=== PATIENT | male | born 1995 | race Caucasian/White ===

== ENCOUNTER 2022-05-24 23:42 | Emergency (ER) | payer OTHER ==
[2022-05-25] MEDS ORDERED: PANTOPRAZOLE 40 MG INJ ONE (00:34)
[2022-05-25] MEDS ORDERED: ONDANSETRON 4 MG/2 ML VIAL ONE (00:34)
[2022-05-25 01:18] LABS: Albumin 4.6 g/dL (3.4-5.0); Bilirubin Total 0.6 mg/dL (0.2-1.0); Potassium 4.3 mmol/L (3.5-5.1); Protein, Total 8.1 g/dL (6.4-8.2)
[2022-05-25 01:24] LABS: Absolute Lymphocytes (CBC) 1.9 K/uL (0.7-4.9); Hematocrit 42.3 % (39.6-49.0); Lymphocytes % 20.9 % (15.3-44.8); MCV 86.6 fL (80-100); MPV 7.6 fL (7.6-11.3); RBC Red Blood Cell Count 4.89 M/uL (4.33-5.43)
--- NOTE | 2022-05-25 01:36 | ER ---
Nurse's Notes [facility] Name: Malik Centeno Age: 26 yrs Sex: Male : 1995 Arrival Date: 05/24/2022 Time: 23:46 Bed 12 Private MD: Diagnosis: Vomiting;Hematemesis Presentation: 05/24 23:50 Chief complaint: Patient states: "I was about to get in the shower when I vomited and tw5 then I saw a little bit of blood. It wasn't very much but I have never vomiting up blood before. It was just a little spot but like I said that has never happened to me before.". Coronavirus screen: Vaccine status: Patient reports receiving the 1st dose of the Covid vaccine. [employer]. Ebola Screen: Patient negative for fever greater than or equal to 101.5 degrees Fahrenheit, and additional compatible Ebola Virus Disease symptoms Patient denies exposure to infectious person. Patient denies travel to an Ebola-affected area in the 21 days before illness onset. Initial Sepsis Screen: Does the patient meet any 2 criteria? Yes Does the patient have a suspected source of infection? No. Patient's initial sepsis screen is negative. Risk Assessment: Do you want to hurt yourself or someone else? Patient reports no desire to harm self or others. Onset of symptoms was May 24, 2022 at 23:15. 23:50 Method Of Arrival: Ambulatory tw5 23:50 Acuity: MARGARITA 4 tw5 Triage Assessment: 23:54 GI: Reports. tw5 23:54 General: Appears in no apparent distress. Behavior is calm, cooperative, appropriate tw5 for age. Pain: Denies pain. Historical: - Allergies: 23:53 No Known Allergies; tw5 - Home Meds: 23:53 None [Active]; tw5 - PMHx: 23:53 None; tw5 - PSHx: 23:53 None; tw5 - Immunization history:: Flu vaccine is not up to date. - Social history:: Smoking status: Patient denies any tobacco usage or history of. Smoking status: Patient reports use of chewing tobacco. - Family history:: not pertinent. Screenin:54 Abuse screen: Denies threats or abuse. Denies injuries from another. Nutritional tw5 screening: No deficits noted. Tuberculosis screening: No symptoms or risk factors identified. Fall Risk None identified. Assessment: 23:54 General: Appears in no apparent distress. Behavior is calm, cooperative, appropriate tw5 for age. Neuro: Level of Consciousness is awake, alert, obeys commands, Oriented to person, place, time, situation. Cardiovascular: No deficits noted. Respiratory: No deficits noted. GI: Abdomen is non-distended. Vital Signs: 23:50 BP 137 / 87; Pulse 84; Resp 18; Temp 98.7; Pulse Ox 88% on R/A; Weight 108.86 kg; tw5 Height 6 ft. 0 in. (182.88 cm); Pain 2/10; 23:50 Body Mass Index 32.55 (108.86 kg, 182.88 cm) tw5 ED Course: 23:46 Patient arrived in ED. ja2 23:53 Triage completed. tw5 23:54 Arm band placed on. tw5 23:54 Patient has correct armband on for positive identification. Door closed. tw5 05/25 00:08 Hugo Hernandez MD is Attending Physician. saturnino 00:40 Initial lab(s) drawn, by in, sent to lab. Inserted saline lock: 20 gauge in right bb antecubital area, using aseptic technique. Blood collected. 01:35 Rosalia Calles MD is Referral Physician. saturnino 01:49 No provider procedures requiring assistance completed. Patient did not have IV access tw5 during this emergency room visit. Administered Medications: 00:42 Drug: Zofran (Ondansetron) 4 mg Route: IVP; Site: right antecubital; bb 00:44 Drug: ProTONIX (pantoprazole) 40 mg Route: IVP; Site: right antecubital; bb 00:47 CANCELLED (Other Intervention Used): ProTONIX (pantoprazole) 40 mg PO once bb 00:47 CANCELLED (Other Intervention Used): Zofran (Ondansetron) 4 mg PO once bb Medication: 12 23:54 VIS not applicable for this client. tw5 Outcome: 05/25 01:35 Discharge ordered by . saturnino 01:49 Discharged to home ambulatory. tw5 01:49 Condition: good 01:49 Discharge instructions given to patient, Instructed on discharge instructions, follow up and referral plans. medication usage, Demonstrated understanding of instructions, follow-up care, medications. 01:49 Patient left the ED. tw5 Signatures: Hugo Hernandez MD MD cha Ballard, Brenda RN RN Court Hardy Tiffany tw5 Corrections: (The following items were deleted from the chart) 00:47 00:42 Zofran (Ondansetron) 4 mg PO leidy forbes
--- NOTE | 2022-05-25 01:37 | EDPHYS ---
Physician Documentation [facility] Name: Malik Centeno Age: 26 yrs Sex: Male : 1995 Arrival Date: 05/24/2022 Time: 23:46 Bed 12 Private MD: ED Physician Hugo Hernandez HPI: 05/25 00:23 This 26 yrs old Male presents to ER via Ambulatory with complaints of saturnino Vomiting. 00:23 The patient presents to the emergency department with nausea, vomiting, that is saturnino continuous. Onset: The symptoms/episode began/occurred just prior to arrival. Possible causes: unknown. The symptoms are aggravated by nothing. The symptoms are alleviated by nothing. Associated signs and symptoms: The patient has no apparent associated signs or symptoms. Severity of symptoms: At their worst the symptoms were mild in the emergency department the symptoms have improved mildly. The patient has not experienced similar symptoms in the past. Historical: - Allergies: 05/24 23:53 No Known Allergies; tw5 - Home Meds: 23:53 None [Active]; tw5 - PMHx: 23:53 None; tw5 - PSHx: 23:53 None; tw5 - Immunization history:: Flu vaccine is not up to date. - Social history:: Smoking status: Patient denies any tobacco usage or history of. Smoking status: Patient reports use of chewing tobacco. - Family history:: not pertinent. ROS: 05/25 00:23 Constitutional: Negative for fever, chills, and weight loss, Eyes: Negative for injury, saturnino pain, redness, and discharge, ENT: Negative for injury, pain, and discharge, Neck: Negative for injury, pain, and swelling, Cardiovascular: Negative for chest pain, palpitations, and edema, Respiratory: Negative for shortness of breath, cough, wheezing, and pleuritic chest pain, Back: Negative for injury and pain, : Negative for injury, bleeding, discharge, and swelling, MS/Extremity: Negative for injury and deformity, Skin: Negative for injury, rash, and discoloration, Neuro: Negative for headache, weakness, numbness, tingling, and seizure, Psych: Negative for depression, anxiety, suicide ideation, homicidal ideation, and hallucinations, Allergy/Immunology: Negative for hives, rash, and allergies, Endocrine: Negative for neck swelling, polydipsia, polyuria, polyphagia, and marked weight changes, Hematologic/Lymphatic: Negative for swollen nodes, abnormal bleeding, and unusual bruising. Abdomen/GI: Positive for nausea and vomiting, hematemesis. Exam: 00:23 Constitutional: This is a well developed, well nourished patient who is awake, alert, saturnino and in no acute distress. Head/Face: Normocephalic, atraumatic. Eyes: Pupils equal round and reactive to light, extra-ocular motions intact. Lids and lashes normal. Conjunctiva and sclera are non-icteric and not injected. Cornea within normal limits. Periorbital areas with no swelling, redness, or edema. ENT: Nares patent. No nasal discharge, no septal abnormalities noted. Tympanic membranes are normal and external auditory canals are clear. Oropharynx with no redness, swelling, or masses, exudates, or evidence of obstruction, uvula midline. Mucous membranes moist. Neck: Trachea midline, no thyromegaly or masses palpated, and no cervical lymphadenopathy. Supple, full range of motion without nuchal rigidity, or vertebral point tenderness. No Meningismus. Chest/axilla: Normal chest wall appearance and motion. Nontender with no deformity. No lesions are appreciated. Cardiovascular: Regular rate and rhythm with a normal S1 and S2. No gallops, murmurs, or rubs. Normal PMI, no JVD. No pulse deficits. Respiratory: Lungs have equal breath sounds bilaterally, clear to auscultation and percussion. No rales, rhonchi or wheezes noted. No increased work of breathing, no retractions or nasal flaring. Abdomen/GI: Soft, non-tender, with normal bowel sounds. No distension or tympany. No guarding or rebound. No evidence of tenderness throughout. Back: No spinal tenderness. No costovertebral tenderness. Full range of motion. Skin: Warm, dry with normal turgor. Normal color with no rashes, no lesions, and no evidence of cellulitis. MS/ Extremity: Pulses equal, no cyanosis. Neurovascular intact. Full, normal range of motion. Neuro: Awake and alert, GCS 15, oriented to person, place, time, and situation. Cranial nerves II-XII grossly intact. Motor strength 5/5 in all extremities. Sensory grossly intact. Cerebellar exam normal. Normal gait. Psych: Awake, alert, with orientation to person, place and time. Behavior, mood, and affect are within normal limits. Vital Signs: 05/24 23:50 BP 137 / 87; Pulse 84; Resp 18; Temp 98.7; Pulse Ox 88% on R/A; Weight 108.86 kg; tw5 Height 6 ft. 0 in. (182.88 cm); Pain 2/10; 23:50 Body Mass Index 32.55 (108.86 kg, 182.88 cm) tw5 MDM: 05/25 00:08 Patient medically screened. [facility] 00:26 Data reviewed: vital signs, nurses notes, lab test result(s), CBC, electrolytes, saturnino hepatic panel. 05/25 00:23 Order name: CBC with Diff; Complete Time: :35 saturnino 05/25 00:23 Order name: Comprehensive Metabolic Panel; Complete Time: :35 [facility] 05/25 00:57 Order name: Lipase; Complete Time: 01:35 EDMS Administered Medications: 00:42 Drug: Zofran (Ondansetron) 4 mg Route: IVP; Site: right antecubital; bb 00:44 Drug: ProTONIX (pantoprazole) 40 mg Route: IVP; Site: right antecubital; bb 00:47 CANCELLED (Other Intervention Used): ProTONIX (pantoprazole) 40 mg PO once bb 00:47 CANCELLED (Other Intervention Used): Zofran (Ondansetron) 4 mg PO once bb Disposition Summary: 05/25/22 01:35 Discharge Ordered Location: Home saturnino Problem: new saturnino Symptoms: have improved saturnino Condition: Stable saturnino Diagnosis - Vomiting saturnino - Hematemesis saturnino Followup: saturnino - With: Private Physician - When: 2 - 3 days - Reason: Recheck today's complaints, Continuance of care, Re-evaluation by your physician Followup: saturnino - With: - When: 2 - 3 days - Reason: Recheck today's complaints, Re-evaluation by your physician Discharge Instructions: - Discharge Summary Sheet saturnino - Gastrointestinal Bleeding saturnino - Hematemesis saturnino - Vomiting, Adult saturnino Forms: - Medication Reconciliation Form saturnino - Thank You Letter saturnino - Antibiotic Education saturnino - Prescription Opioid Use saturnino Prescriptions: - Protonix 40 mg Oral Tablet - take 1 tablet by ORAL route once daily; 30 tablet; Refills: 0, Product saturnino Selection Permitted - Zofran 4 mg Oral Tablet - take 1 tablet by ORAL route every 12 hours As needed; 20 tablet; Refills: 0, saturnino Product Selection Permitted Signatures: Dispatcher [employer] EDHugo Campbell MD MD cha Ballard, Brenda, RN RN Krystal Robins tw5 Corrections: (The following items were deleted from the chart) 00:47 00:23 ProTONIX (pantoprazole) 40 mg PO once ordered. saturnino forbes 00:47 00:23 Zofran (Ondansetron) 4 mg PO once ordered. saturnino forbes 00:47 00:46 Zofran (Ondansetron) 4 mg PO once given. leidy forbes 00:47 00:47 Zofran (Ondansetron) 4 mg PO once ordered. leidy forbes 00:57 00:27 LIPASE+C.LAB.BRZ ordered. TYRONE HANSEN
[2022-05-25 06:53] VITALS: BP 137/87; TEMP 98.7; O2SAT 88
== END 2022-05-25 01:49 | disposition home or self-care (01) ==
LOC: ER 23:42
DX: K92.0 Hematemesis (principal); F17.220 Nicotine dependence, chewing tobacco, uncomplicated
CPT/HCPCS: 85025; 36415; 83690; 80053; 96375; 96374; 99283; C9113; J2405